=== PATIENT | male | born 1955 | race Caucasian/White ===

== ENCOUNTER 2025-07-21 09:51 | Outpatient (AMB) | payer MEDICARE, SELFPAY ==
--- NOTE | 2025-07-21 10:10 | A.OFFPC_ITS ---
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 ?? Prior PCP:? No Recent PCP Last office visit/CPE:? > 1 yr Acute issue(s):? B/L Hand Swelling and R hand tingling. ?? PMHx:? afib. s/p ablation. Had Cardiology at [facility] [place]. None now. SurgHx:? R knee, Heart Ablation FHx:? Mom: CVA. Dad: EtOH complications. Sister: Afib. SocHx: Quit Cigs 12 yrs ago. EtOH: 2 drinks a day. No drugs PFSH Surgical History (Updated 07/21/25 @ 11:06 by Shaquille Dukes) History of knee replacement History of cardiac radiofrequency ablation H/O knee surgery Family History (Updated 07/21/25 @ 10:21 by Page Cedillo CMA) Mother Stroke Social History (Updated 07/21/25 @ 10:22 by Page Cedillo CMA) Housing: House Alcohol intake: current Patient Tobacco Use Status: Former Tobacco user Cigarette Packs Per Day: 1 Cigarettes Per Day: 15 Years Smoked: 40 e-Cigarette/Vaping Use: Never Used Second Hand Smoke Exposure: No service: Yes ([employer]) Current occupational status: employed Current occupation: [employer] Current occupational exposures/hazards: No Cognitive needs: No Hearing needs: No Vision needs: No Questionnaire PHQ-9 Over the last 2 weeks, how often have you been bothered by any of the following problems? 1. Little interest or pleasure in doing things: not at all 2. Feeling down, depressed, or hopeless: not at all 3. Trouble falling or staying asleep, or sleeping too much: not at all 4. Feeling tired or having little energy: not at all 5. Poor appetite or overeating: not at all 6. Feeling bad about yourself - or that you are a failure or have let yourself or your family down: not at all 7. Trouble concentrating on things, such as reading the newspaper or watching television: not at all 8. Moving or speaking so slowly that other people could have noticed. Or the opposite - being so fidgety or restless that you have been moving around a lot more than usual: not at all 9. Thoughts that you would be better off or of hurting yourself in some way: not at all Total score: 0 Depression Screening Interpretation: Negative Depression Screening Done: Yes 93499 - PHQ-9 Billing: Yes Source: Developed by Drs. Mariano Ross, Awilda Mckee, Ced Martinez and colleagues, with an educational yordan from [employer]. Thrive Questionnaire Date Thrive assessed: 07/21/25 I am a: Patient What is your living situation today?: I have a steady place to live Within the past 12 months, did the food you bought not last and you didn't have the money to get more?: Never true Within the past 12 months, did you worry whether your food would run out before you got money to buy more?: Never true Do you have trouble paying for medicines?: No Do you have trouble getting transportation to medical appointments?: No Do you have trouble paying your heating and electricity bill?: No Do you have trouble taking care of your child, family member or friend?: No Do you have trouble with day-to-day activities such as bathing, preparing meals, shopping, managing finances, etc.?: No Are you currently unemployed and looking for a job?: No Are you interested in more education?: No THRIVE Score: 0 AUDIT C Alcohol Use Questionnaire (AUDIT-C) 1. How often do you have a drink containing alcohol?: 2-3 times a week 2. How many drinks containing alcohol do you have on a typical day when you are drinking?: 3 or 4 3. How often do you have six or more drinks on one occasion?: Monthly Total Score: 6 ELLA-7 AMB Questionnaire ELLA-7 Date ELLA - 7 assessed: 07/21/25 Feeling nervous, anxious, or on edge: 0 = Not at all Not being able to stop or control worryin = Not at all Worrying too much about different things: 0 = Not at all Trouble relaxin = Not at all Being so restless that it is hard to sit still: 0 = Not at all Becoming easily annoyed or irritable: 0 = Not at all Feeling afraid as if something awful might happen: 0 = Not at all Total ELLA-7 score (0-4 normal; 5-9 mild; 10-14 moderate; 15-21 severe): 0 Source: Developed by Drs. Mariano Ross, Awilda Mckee, Ced Martinez and colleagues, with an educational yordan from [employer]. Review of Systems Const Denies chills, Denies fatigue, Denies fever(s), Denies headache(s) and Denies weakness ENT Denies dizziness and Denies headache(s) Card Denies chest pain, Denies lightheadedness, Denies dyspnea and Denies other (Palpitations) Resp Denies cough, Denies dyspnea, Denies wheezing and Denies other ( shortness of breath) Musc Denies numbness and Denies tingling Neuro Denies dizziness, Denies headache(s), Denies numbness, Denies tingling, Denies paresthesias and Denies weakness Psych Denies anxiety and Denies depression Endo Denies fatigue Aller/Immun Denies wheezing Physical exam (Primary Care) Vital Signs: Last Vital Signs Temp 97.3 F 07/21/25 10:22 Pulse 88 07/21/25 10:22 Resp 16 07/21/25 10:22 BP 116/70 07/21/25 10:22 Pulse Ox 97 07/21/25 10:22 Oxygen Delivery Method Room Air 07/21/25 10:22 BMI result Body Mass Index 27.1 Tobacco/Smoking Status: Tobacco use Status Tobacco use date assessed 07/21/25 07/21/25 10:29 Patient Tobacco Use Status Former Tobacco user 07/21/25 10:29 e-Cigarette/Vaping Use Never Used 07/21/25 10:29 PHQ-9: PHQ-9 Score PHQ-9: Total score 0 07/21/25 10:46 Depression Screening Interpretation: Negative Thrive Assessment: Date of Thrive Assessment Date Thrive assessed 07/21/25 07/21/25 10:11 Const General: no acute distress and well developed Nutritional Appearance: well nourished Orientation/consciousness: patient oriented x3 HENMT Head: Yes normocephalic and Yes atraumatic Eyes General: appearance normal, both eyes and all related structures Pupils: Equal, round and reactive pupils present EOM: EOMs intact bilaterally Resp Effort & Inspection: normal respiratory effort Auscultation: clear to auscultation bilaterally Cardio Rate: regular rate Rhythm: regular rhythm Heart sounds: S1 normal heart sound present, S2 normal heart sound present, no gallops, no murmurs and no rubs Neuro General: patient oriented x3 and gait normal Cranial nerves: Yes Equal, round and reactive pupils present Psych Affect: normal affect Coding Level of Care Code New Pt Level 3 (39621) Diagnoses Bilateral hand swelling M79.89 History of atrial fibrillation Z86.79 History of cardiac radiofrequency ablation Z. Laboratory exam ordered as part of routine general medical examination Z00. Additional Codes PHQ-9 - 45635 - PHQ-9 Billing: Yes ([id number]) Assessment & Plan Assessment & Plan (1) Bilateral hand swelling: Code(s): M79.89 - Other specified soft tissue disorders Category: Medical Plan: Bilateral hand swelling Likely arthritis/tendonitis Check x-rays Check inflammatory and autoimmune markers Will send a script for naproxen 500 mg b.i.d. Ice/heat and gentle stretching Will follow-up together at next visit (2) History of atrial fibrillation: Code(s): Z86.79 - Personal history of other diseases of the circulatory system Category: Medical (3) History of cardiac radiofrequency ablation: Comment: 2022 Code(s): Z98.890 - Other specified postprocedural states Category: Surgical (4) Laboratory exam ordered as part of routine general medical examination: Code(s): Z00.00 - Encounter for general adult medical examination without abnormal findings Category: Medical Plan Patient has history of atrial fibrillation with radiofrequency ablation. No longer has irregular rhythm. No longer has vp compliance, per patient. He says cardiology was at [facility] [place] and I will request notes. Orders: Orders Prostate Specific Antigen Scr Today Z12.5 - Encounter for screening for malignant neoplasm of prostate Lipid Panel Today Z00.00 - Encounter for general adult medical examination without abnormal findings TSH reflex Free T4 Today Z00.00 - Encounter for general adult medical examination without abnormal findings UA CC w/rflx Micro + Cult Today Z00.00 - Encounter for general adult medical examination without abnormal findings CRP High Sensitivity Today M79.89 - Other specified soft tissue disorders Cyclic Citrullinated Peptide Today M79.89 - Other specified soft tissue disorders LUIGI Reflex Titer and Pattern Today M79.89 - Other specified soft tissue disorders Comprehensive [place]. Panel Fast Today Z00.00 - Encounter for general adult medical examination without abnormal findings Complete Blood Count Auto Diff Today Z00.00 - Encounter for general adult medical examination without abnormal findings Microalbumin, Random (w Creat) Today I10 - Essential (primary) hypertension Vitamin B12 and Folate Today E53.8 - Deficiency of other specified B group vitamins XR Hand Bilat min 3v Today M79.89 - Other specified soft tissue disorders Erythrocyte Sedimentation Rate Today M79.89 - Other specified soft tissue disorders Rheumatoid Factor Today M79.89 - Other specified soft tissue disorders Medications: New naproxen 500 mg PO BID PRN 60 tabs 2RF pain 30 days diclofenac sodium 1% (Arthritis Pain (diclofenac)) apply to single knee, ankle, foot; for foot includes sole/toes/top of foot 4 grams topical BID 200 grams 2RF 30 days
[2025-07-21 10:22] VITALS: BP 116/70; PULSE 88; RESP 16; TEMP 36.3; O2SAT 97; BMI 27.1
--- OUTSIDE RECORDS SUMMARY | 2025-07-21 11:20 | XMS_ITS ---
Author Name [facility] Organization Unknown Care Team Organization Name Specialty Phone Email Start Date End Da te [facility] NULL Primary Care 08/29/2023 05/05/2024
--- OUTSIDE RECORDS SUMMARY | 2025-07-21 11:20 | XMS_ITS | Clinical Summary ---
Author Organization [facility] Address [address] [place] [address] Care Team Providers Care County Supervisor Name Role Phone Unavailable Primary Care Provider Unavailabl e Social History Tobacco Use Types Packs/Day Years Used Date Smoking Tobacco: Never Assessed Sex and Gender Information Value Date Recorded Sex Assigned at Not on file Gender Identity Not on file Sexual Orientation Not on file Job Start Date Occupation Industry Not on file Not on file Not on file Plan of Treatment Health Maintenance Due Date Last Done Comments Hepatitis C Screening 1955 Depression Screening 1965 Preventative Health Evaluation 1971 DTap / Tdap / Td (1 - Tdap) 1972 Colon Cancer Screening (Colonoscopy) 1998 Shingrix-Zoster Vaccine (1 o f 2) 2003 Fall Risk Assessment 2018 Pneumococcal Vaccine (2 of 2 - PPSV23 or PCV20) 06/05/2020 06/05/2019 COVID-19 Vaccine (4 - 2024-2 6 season) 2025 08/19/2021, 12/30/2020, 12/09/2020 Influenza Vaccine (#1) 2025 RSV Adult > 60+ Yrs or (1 - 1-dose 75+ series) 2028 Hepatitis B Vaccines Aged Out No long er eligible based on patient's age to complete this topic RSV Ped < 20 months Aged Out No longe r eligible based on patient's age to complete this topic Ganesh Holman Personal/Famil y Self 1955 0 (Home) 7 DAILY [facility] [place] [id number]
--- OUTSIDE RECORDS SUMMARY | 2025-07-21 11:21 | XMS_ITS | Data Portability ---
Author Organization [facility], [facility] Address [address] [place] [address] Care Team Providers Care Passenger Service Representative Name Role Phone MIKKI FREEMAN Referring Provider MIKKI FREEMAN Primary Care Provider Assessment Encounter Date Assessment Date Assessment LastModified by Organization Details LastModified Time 10/16/2024 10/16/2024 A: Patient ella. 1# with SAQ today. Patient didn't ella. greater than 25 reps with SLR due to hip pain. P: Increase wt. with knee ext hang N/V. [email or web address] Not available 10/16/2024 11:45:41 10/21/2024 10/21/2024 A: Performed standing resisted counter exercises with good tolerance. P: Progress strength as tolerated to improve functional mobility. Not available 10/21/2024 12:15:08 10/23/2024 10/23/2024 A: Performed sit to stands with emphasis on slow and controlled descend to improve pt's ability to perform functional transfers. P: Progress strength as tolerated to improve functional mobility. Not available 10/23/2024 11:31:52 11/04/2024 11/04/2024 Imaging: Imaging ordered, independently reviewed and interpreted by Jose Luis Dale MD reveals the following findings: XR Knee Right Knee: Three views of the knee were obtained including AP, sunrise, and lateral views. Status post total knee arthroplasty. No evidence of complication, well fixed, well aligned. There is no evidence of loosening or migration. There is no evidence of osteolysis. No fractures are present. Alignment: Neutral Impression: Status post right total knee arthroplasty, 6 weeks out Plan: The patient is doing well, continue activities as tolerated. Follow up with repeat radiographs in one year, or sooner if problems arise. [email or web address] Not available 11/04/2024 08:09:46 Plan of Treatment Reminders Order Date Submit Date Provider Last Modified By Organization Details Last Modified Time Details Appointments None record ed. Lab None record ed. Referral None record ed. Procedures None record ed. Surgeries None record ed. Imaging None record ed. Medication Orders None record ed. Patient TargetsNo targets recorded. Patient InstructionsNo instructions recorded. Reason for Referral None Reported. Results Created Date Observation Date Name Description Value Unit Range Abnormal Flag Note LastModifiedBy Organization Detail LastModifiedTime 10/03/19 25 10/03/2024 XR, knee, 3 view http:/ /[email or web address] ?Encry pted=s hAaTro YD8dLq bEUv6g %2BXZw aYqtaq 0bqfl% 2Fg9IQ a4ajBk vP9nXo QUaueC m3YtLR FvZlgJ JJ8mAn HZtai3 6k1294 AC0Kqb 3uEUau mKiQtr MwF INTERFACE [employer] [address] [facility] [address], [place], [address], 10/03/2024 14:37:06 10/03/19 25 10/03/2024 XR, knee, 3 view http:/ [email or web address] ?Encry pted=s hAaTro YD8dLq bEUv6g %2BXZw aYqtaq 0bqfl% 2Fg9IQ a4ajBk vP9nXo QUaueC m3YtLR FvZlgJ JJ8mAn HZtai3 8o1034 AC0Kqb 3uEUau mKiQtr MwF INTERFACE [employer] [address], [place], [address], 10/03/2024 14:37:08 Result Notes None recorded. Problems Name Problem SNOMED Code Status Onset Date Resolution Date Notes Provider Name and Address Organization Details Recorded Time Pain of right knee joint 0778347330508 00 [facility] 4 09:57:55 Osteoarthr itis of right knee joint 2603907788656 00 Active 2023 Jose Luis Dale MD [address], [place], [address] , [facility] 4 12:20:02 Postoperat sarah pain 468276384 Active 2023 Sylvia Gómez APRN [address], [place], [address] , [facility] 4 10:41:37 History of total knee arthroplas ty 8693195267653 Active 2024 Jose Luis Dale MD [address], [place], [address] , [facility] 5 08:09:45 Problem Notes None recorded. Procedures Surgical History Date Name Laterality Status Provider Name and Address Organization Details Recorded Time 5 17466 Therapeutic Exercise (1:1) cancelled Cruz Lobo, PT [address], [place], [address], [facility] 10/28/2024 12:11:30 5 24738 Therapeutic Exercise (1:1) completed Teri Starr, FOUR SLIDE MACHINE OPERATOR [address], [place], [address], [facility] 10/23/2024 11:30:02 5 52684 Therapeutic Exercise (1:1) completed Teri Starr, FOUR SLIDE MACHINE OPERATOR [address], [place], [address], [facility] 10/21/2024 11:01:20 5 77419 Therapeutic Exercise (1:1) completed Cruz Lobo, PT [address], [place], [address], [facility] 10/16/2024 11:28:30 5 21092 Therapeutic Exercise (1:1) completed Cruz Lobo, PT [address], [place], [address], [facility] 10/14/2024 11:39:37 5 50289: Hot or Cold Pack completed Cruz Lobo, PT [address], [place], [address], [facility] 10/14/2024 10:48:01 5 00578 Therapeutic Exercise (1:1) completed Cruz Lobo, PT [address], [place], [address], [facility] 10/09/2024 09:23:13 5 46587: Hot or Cold Pack completed Cruz Lobo, PT [address], [place], [address], [facility] 10/09/2024 09:23:13 5 56093 Therapeutic Exercise (1:1) completed Teri Starr, FOUR SLIDE MACHINE OPERATOR [address], [place], [address], [facility] 10/08/2024 11:22:48 5 87428: Hot or Cold Pack completed Teri Starr, FOUR SLIDE MACHINE OPERATOR [address], [place], [address], [facility] 10/08/2024 11:22:48 5 60280 Therapeutic Exercise (1:1) completed Conor Villafana, FOUR SLIDE MACHINE OPERATOR [address], [place], [address], [facility] 10/01/2024 12:25:46 5 82599: Hot or Cold Pack completed Conor Villafana, FOUR SLIDE MACHINE OPERATOR [address], [place], [address], [facility] 10/01/2024 12:10:26 5 74570 Therapeutic Exercise (1:1) completed Cruz Lobo, PT [address], [place], [address], [facility] 09/25/2024 12:16:59 5 10155: Low complexity PT Eval completed Cruz Lobo, PT [address], [place], [address], [facility] 09/25/2024 12:17:03 5 G8417 BMI Above Upper Parameters, F/U Documented completed Cruz Saeedan, PT [address], [place], [address], [facility] 09/25/2024 12:18:02 5 G8427 Current Medication Documented completed Cruz Lobo, PT [address], [place], [address], [facility] 09/29/2024 15:25:29 4 87012 Therapeutic Exercise (1:1) completed Cruz Lobo, PT [address], [place], [address], [facility] [employer] [facility] 09/02/2024 11:08:56 4 51223: Low complexity PT Eval completed Cruz Lobo, PT [address], [place], [address], [facility] 09/02/2024 11:09:01 4 G8417 BMI Above Upper Parameters, F/U Documented completed Cruz Lobo, PT [address], [place], [address], [facility] 09/12/2024 08:22:40 4 G8427 Current Medication Documented completed Cruz Lobo, PT [address], [place], [address], [facility] 09/12/2024 08:22:42 Imaging Results None recorded. Procedure Notes None recorded. Medical Equipment None Reported. Allergies No known drug allergies Medications Name Sig Start Date Stop Date Status Note LastModified by Organization Details LastModified Time celecoxib 200 mg capsule TAKE 1 CAPSULE EVERY DAY BY ORAL ROUTE FOR 33 DAYS. active Not Available Not Available No t Available pravastatin 40 mg tablet TAKE 1 TABLET BY MOUTH EVERY DAY active Not Available Not Available No t Available tretinoin 0.05 % topical cream APPLY THIN LAYER TO FACE NIGHTLY active Not Available Not Available No t Available tramadol 50 mg tablet TAKE 1 TO 2 TABLETS BY MOUTH EVERY 6 HOURS NEEDED FOR MILD PAIN. DO NOT EXCEED 8 TABLETS (400MG) PER DAY. active Not Available Not Available No t Available acetaminophen ER 650 mg tablet,extended release TAKE 1 TABLET 3 TIMES A DAY BY ORAL ROUTE FOR 33 DAYS. active Not Available Not Available No t Available benzonatate 100 mg capsule TAKE 1 CAPSULE BY MOUTH THREE TIMES A DAY FOR 5 DAYS active Not Available Not Available No t Available pantoprazole 40 mg tablet,delayed release TAKE 1 TABLET BY MOUTH EVERY DAY FOR 30 DAYS active Not Available Not Available No t Available docusate sodium 100 mg capsule TAKE 1 CAPSULE BY MOUTH TWICE A DAY FOR 30 DAYS active Not Available Not Available No t Available ipratropium bromide 21 mcg (0.03 %) nasal spray SPRAY 2 SPRAYS INTO EACH NOSTRIL 3 TIMES A DAY active Not Available Not Available No t Available loratadine 10 mg tablet TAKE 1 TABLET BY MOUTH EVERY DAY active Not Available Not Available No t Available oxycodone 5 mg tablet TAKE 1 TO 2 TABLETS BY MOUTH EVERY 4 HOURS NEEDED FOR SEVERE PAIN active Not Available Not Available No t Available aspirin active Not Available Not Avail able Not Available pravastatin active Not Available Not A vailable Not Available Vitals None Recorded Social History None recorded. Functional Status None recorded. Mental Status None recorded. Family History Nothing Reported. Medical History Condition Response Arthritis Y Past Encounters Encounter ID Performer Location Encounter Start Date Encounter Closed Date Diagnosis/Indication Diagnosis SNOMED-CT Code Diagnosis ICD10 Code Diagnosis IMO Codes Diagnosis Note [id number] [facility] [address] [place] [address] 07/08/2024 09:12:21 07/24/2024 07:26:55 Pain of right knee joint 4265839187 82139 M25.561 603098 Osteoarthr itis of right knee joint 7848113251 12867 M17.11 2127599 [id number] Jose Luis Brothers, MD [facility] [address] [place] [address] 08/21/2024 09:57:24 09/05/2024 15:42:54 Osteoarthritis of right knee joint 7077462496 99884 M17.11 [id number] Cruz Lobo, PT [facility] [address] [place] [address] 09/09/2024 08:15:08 09/09/2024 09:29:48 Osteoarthritis of knee 973393261 M17.11 [id number] Sylvia Gómez, ORIENTOR [facility] [address] [place] [address] 09/09/2024 10:11:20 10/02/2024 04:00:20 Osteoarthritis of right knee joint 5805259935 09558 M17.11 [id number] Cruz Lobo, PT [facility] [address] [place] [address] 09/29/2024 14:45:35 09/29/2024 15:32:52 History of right total knee replacement 5005596721 864040 Z96.651 Z47.1 [id number] Conor Villafana, FOUR SLIDE MACHINE OPERATOR [facility] [address] [place] [address] 10/01/2024 11:25:55 10/01/2024 12:31:42 History of right total knee replacement 4624491775 496160 Z96.651 Z47.1 [id number] Migel Chua PA-C [facility] [address] [place] [address] 10/03/2024 14:24:34 10/14/2024 08:15:20 Implantation of joint prosthesis 24264638 Z47.1 Knee joint prosthesis present 1761974976 02 Z96.406 [id number] Teri Starr, FOUR SLIDE MACHINE OPERATOR [facility] [address] [place] [address] 10/08/2024 12:50:41 10/08/2024 13:59:46 History of right total knee replacement 5916174019 098477 Z96.651 Z47.1 [id number] Cruz Lobo, PT [facility] [address] [place] [address] 10/10/2024 13:51:21 10/10/2024 15:02:08 History of right total knee replacement 6169559906 940418 Z96.651 Z47.1 [id number] Cruz Lobo, PT [facility] [address] [place] [address] 10/14/2024 10:52:12 10/14/2024 11:45:06 History of right total knee replacement 1077617227 487264 Z96.651 Z47.1 [id number] Cruz Lobo, PT [facility] [address] [place] [address] 10/16/2024 10:55:33 10/16/2024 12:54:41 History of right total knee replacement 2514893102 342360 Z96.651 Z47.1 [id number] Teri Jasak, FOUR SLIDE MACHINE OPERATOR [facility] [address] [place] [address] 10/21/2024 10:29:17 10/21/2024 11:11:45 History of right total knee replacement 7262381549 716234 Z96.651 Z47.1 [id number] Teri Jasak, FOUR SLIDE MACHINE OPERATOR [facility] [address] [place] [address] 10/23/2024 10:18:42 10/23/2024 13:31:32 History of right total knee replacement 7368862158 850228 Z96.651 Z47.1 [id number] Cruz Lobo, PT [facility] [address] [place] [address] 10/28/2024 12:37:43 10/28/2024 12:46:52 History of right total knee replacement 2822570375 235041 Z96.651 Z47.1 [id number] MD [facility] [address] [place] [address] 11/04/2024 07:53:56 11/19/2024 16:13:55 History of total knee arthroplasty 1211648329 105 Z96.651 [id number] Health Concerns Section Related Observation LastModified by Organization Detai ls LastModified Time None Recorded Concern Status LastModified by Organization Details LastModified Time None Recorded Advance Directives Directive None Recorded Payers Insurance Date Sequence Insurance Name Policy Number Policy Be Covered Member ID Be Member ID Guarantor Name 09/08/2024 1 [place] [employer] Ganesh Holman [id number] Ganesh Holman 09/08/2024 2 [place] Ganesh Holman [id number] Ganesh Holman 06/03/2025 1 DEANGELO RIVERA - MEDICARE-[address] [employer] BOARD (MEDICARE) Ganesh Holman [id number] Ganesh Holman Notes Date Note Type Note Provider Name and Address Organization Details Recorded Time 10/16/2024 text/html Pt states that his knee pain's been a 1/10 at the incision site today. Cruz Lobo, PT [address], [place], [address], [facility] 10/16/2024 11:46:22 10/21/2024 text/html Pt states that he is staying very active and going to the gym occasionally. Teri Starr, FOUR SLIDE MACHINE OPERATOR [address], [place], [address], [facility] 10/21/2024 12:15:23 10/23/2024 text/html Pt states no significant changes in sxs since last visit. He rates his pain 1/10 today coming in. Teri Starr, FOUR SLIDE MACHINE OPERATOR [address], [place], [address], [facility] 10/23/2024 11:32:30 10/28/2024 text/html Patient accidentally checked in by front end assistant. Patient no showed today. Cruz Lobo, PT [address], [place], [address], [facility] 10/28/2024 13:10:38 11/04/2024 text/html ROS as noted in the HPI History of present illness:This patient follows up today and is now 6 weeks out from right total knee arthroplasty. Their pain is well controlled and they are progressing as expected with physical therapy. Able to do current activities without significant difficulty. They have no major complaints at this time and are satisfied with their current state of recovery.Past family, medical, social history and review of systems has been reviewed and updated, and is located in the patient s chart. Jose Luis Dale MD [address] [place], [place] [address] [address], [place], [address], [facility] 11/04/2024 08:09:58
== END 2025-07-21 11:11 | disposition home or self-care (01) ==
LOC: HO.HMCFM 09:51
PROVIDERS: PCP Family Medicine; Visit Provider Family Medicine
DX: M79.89 Other specified soft tissue disorders (principal); Z86.79 Personal history of other diseases of the circulatory system; Z98.890 Other specified postprocedural states; Z00.00 Encounter for general adult medical examination without abnormal findings

== ENCOUNTER → 2025-07-21 09:51 | Outpatient (BNVA) | payer MEDICARE, SELFPAY | PROVIDERS: PCP Family Medicine; Visit Provider Family Medicine | DX: M79.89 Other specified soft tissue disorders (principal); Z86.79 Personal history of other diseases of the circulatory system; Z13.31 Encounter for screening for depression | CPT/HCPCS: 96127; 99202 ==

== ENCOUNTER 2025-07-24 09:05 | Outpatient (REF) | payer MEDICARE, SELFPAY ==
--- NOTE | ~2025-07-24 | XR_ITS ---
EXAMINATION: XR HAND BILAT 3V CLINICAL INFORMATION: M79.89 - Other specified soft tissue disorders ; bilateral hand pain. COMPARISON: No prior available. TECHNIQUE: PA, lateral, and oblique views of each hand obtained. FINDINGS: RIGHT HAND: There is no fracture, dislocation, or suspicious bone lesion. Normal bone mineralization. No periarticular osteopenia is identified. Moderate to severe changes of osteoarthritis are present in the interphalangeal joints of the digits, most significant involving the DIP joint of the third digit, and PIP joint of the fourth digit. There is mild ulnar deviation of the PIP joint of the fourth digit. There are associated productive marginal bony changes with spurring. Severe osteoarthritic changes also noted in the first CMC joint, with lesser degree in the STT joints. Mild narrowing of the radiocarpal joint. Mild narrowing of the MCP joints with mild productive bony changes. No gross periarticular erosions are present. No acute soft tissue abnormalities are present. There are vascular calcifications. LEFT HAND: There is no fracture, dislocation, or suspicious bone lesion. Normal bone mineralization. No periarticular osteopenia is identified. Moderate to severe changes of osteoarthritis are present in the interphalangeal joints of the digits, most significant involving the DIP joint of the third digit, and PIP joints of the third and fourth digits. There is mild ulnar deviation of the PIP joint of the fourth digit. There are associated productive marginal bony changes with spurring. Moderate osteoarthritic changes also noted in the first CMC joint, with mild changes in the STT joints. Mild narrowing of the radiocarpal joint. Mild narrowing of the MCP joints with mild productive bony changes. No gross periarticular erosions are present. No acute soft tissue abnormalities are present. There are vascular calcifications. XR/XR Hand Bilat min 3v IMPRESSION: 1. No acute bony or soft tissue abnormalities of either hand. 2. Significant bilateral hand and wrist osteoarthrosis as discussed. 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 Electronically signed by: Perry Roberson MD 07/24/2025 09:58 AM [facility]
[2025-07-24 09:21] LABS: MANUAL DIFF FLAG NO
[2025-07-24 09:37] LABS: Hematocrit 39.3 % (42.0-52.0); Hemoglobin 13.0 g/dl (14.0-18.0); Imm Gran Abs Auto 0.02 X10*3/uL (0.00-0.03); Imm Gran Pct Auto 0.4 % (0.0-0.4); Lymphocytes Absolute Auto 1.5 X10*3/uL (1.2-4.9); Mean Corpuscular HGB Conc 33.1 g/dl (31.0-36.0); Mean Corpuscular Hemoglobin 29.0 pg (27.0-33.0); Mean Corpuscular Volume 87.7 fL (80.0-98.0); NRBC Abs Auto 0.000 X10*3/uL (0.0-0.012); NRBC Pct Auto 0.0 /100WBC (0.0-0.2); Platelet Count 187 X10*3/uL (160-400); Red Blood Count 4.48 X10*6/uL (4.60-5.80); White Blood Count 5.6 X10*3/uL (4.8-10.8)
--- OUTSIDE RECORDS SUMMARY | 2025-07-24 10:09 | XMS_ITS | Clinical Summary ---
Author Organization [employer] Address [address] [facility] [address] [facility] [address] [place] [address] Care Team Providers Care Combination Window Installer Name Role Phone Andrae Machado MD Primary Care Provider [phone] Carson Duran MD Unavailable [phone] Allergies No known active allergies Medications aspirin 81 mg EC tablet Take 81 mg by mouth once daily. 12/07/2022 Active Active Problems Problem Noted Date Diagnosed Date Paroxysmal atrial fibrillation 06/25/2022 Assessment & Plan (01/11/2023 1:42 PM EDT): He initially presented [facility], seeking a second opinion regarding further evaluation and management of atrial fibrillation. At the time of his visit, it was discussed on the good chance to treated with an ablation procedure, with a success rate of around 70%. The patient ultimately had his AFib ablation locally at [facility] last fall without any further occurences of AFib. He currently remains off of antiarrhythmics, and anticoagulation. Today he seeks out our recommendations/ interventions on an elevated calcium score on a CT coronary artery score done on 11/17/22 at [facility]. Mr Julio was advised that the [facility] does not manage high Calcium score on seen on Coronary CT scans. His local interior plant caretaker would be best to manage these findings. He remains without any S+S ischemia. Assessment & Plan (06/25/2022 8:09 PM EDT): Diagnosed with atrial fibrillation few months ago. Underwent multiple cardioversions with the most recent being 4 weeks ago while on Multaq 400 mg twice daily. His home medical regimen also includes diltiazem 120 mg once daily and Xarelto 20 mg once daily for stroke prevention. Continues to endorse palpitations and fatigue. He tends to go back into A. fib after consuming alcohol or working out for 2 hours. He is in sinus rhythm today. Vital signs within acceptable limits. Physical exam was unrevealing. We discussed at length the pathophysiology and natural history of atrial fibrillation. Rhythm control strategies were discussed at length in the office today with patient and his . The risks/benefits of atrial fibrillation ablation were discussed in detail. Potential complications/adverse events include, but are not limited to: bleeding/bruising, infection, vascular complication, stroke, phrenic nerve paralysis, atrioesophageal fistula, cardiac perforation, tamponade, the need for emergent cardiac surgery, and cardiopulmonary arrest. The patient understands the procedure and all questions were answered. He wishes to have some time to think about it prior to pursuing an afib ablation. He was advised to call our office in the interim, with any further questions or concerns. In the meantime, we recommended getting a sleep study to rule out sleep apnea as well as a 24-hour blood pressure monitoring to determine his mean blood pressure reading. We will give him a call in 1 week to follow-up on his decision. Social History Tobacco Use Types Packs/Day Years Used Date Smoking Tobacco: Never Smokeless Tobacco: Never Tobacco Cessation:Counseling Given: Not Answered Alcohol Use Standard Drinks/Week Comments Yes 0 (1 standard drink = 0.6 oz pur e alcohol) 1 glass a night Sex and Gender Information Value Date Recorded Sex Assigned at Not on file Legal Sex Male 1:39 PM EDT Gender Identity Not on file Sexual Orientation Not on file Last Filed Vital Signs Vital Sign Reading Time Taken Comments Blood Pressure 108/68 01/11/2023 11:42 AM EDT Pulse 75 01/11/2023 11:42 AM EDT Temperature - - Respiratory Rate - - Oxygen Saturation 100% 01/11/2023 11:42 AM EDT Inhaled Oxygen Concentration - - Weight 89.8 kg (198 lb) 01/11/2023 11:42 AM EDT Height 182.9 cm (6') 01/11/2023 11:42 AM EDT Body Mass Index 26.85 01/11/2023 11:42 AM EDT Plan of Treatment Health Maintenance Due Date Last Done Comments CT Colonography 1955 Colonoscopy 1955 Colorectal Cancer Screening 1955 FIT-DNA 1955 FIT 1953 FOBT 1953 Lipid Panel 1953 Sigmoidoscopy 1953 Diabetes Screening 1971 Hepatitis C Screening 1971 DTaP/Tdap/Td Vaccines (1 - Tdap) 1972 Zoster Vaccines (1 of 2) 2003 Pneumococcal Vaccine: 50+ Years (2 of 2 - PCV20 or PCV21) 06/05/2020 06/05/2019 Depression Screening 09/17/2024 COVID-19 Vaccine ( season) 2025 10/07/2022, 08/19/2021, 12/30/2020, Additional history exists Influenza Vaccine (#1) 2025 HIB Vaccines Aged Out No longer eligi ble based on patient's age to complete this topic HPV Vaccines Aged Out No longer eligi ble based on patient's age to complete this topic Hepatitis A Vaccines Aged Out No long er eligible based on patient's age to complete this topic Hepatitis B Vaccines Aged Out No long er eligible based on patient's age to complete this topic IPV Vaccines Aged Out No longer eligi ble based on patient's age to complete this topic Meningococcal B Vaccine Aged Out No l onger eligible based on patient's age to complete this topic Meningococcal Vaccine Aged Out No dereje callum eligible based on patient's age to complete this topic Rotavirus Vaccines Aged Out No longer eligible based on patient's age to complete this topic Insurance [facility] H[facility] [employer] Care Teams Combination Window Installer Relationship Specialty Start Date End Date Andrae Machado MD [address] [facility] [address] [place] [address] PCP - General Quarter Folder 05/17/22 Carson Duran MD [address] [place] [address] 05/17/22
--- OUTSIDE RECORDS SUMMARY | 2025-07-24 10:09 | XMS_ITS | Clinical Summary ---
Author Organization [facility] Address [address] [place] [address] Care Team Providers Care [employer] Senior Officer Name Role Phone Unavailable Primary Care Provider [...] y Self 1955 0 (Home) [address] [place] [address]
--- OUTSIDE RECORDS SUMMARY | 2025-07-24 10:10 | XMS_ITS | Data Portability ---
Author Organization [facility], [facility] Address [address] [place] [address] Care Team Providers Care Make Up Worker Name Role Phone MIKKI FREEMAN Referring Provider MIKKI FREEMAN Primary Care Provider [phone] Assessment Encounter Date Assessment Date Assessment LastModified by Organization Details LastModified Time 10/16/2024 10/16/2024 A: Patient ella. 1# with SAQ today. Patient didn't ella. greater than 25 reps with SLR due to hip pain. P: Increase wt. with knee ext hang N/V. [email or web address] Not available 10/16/2024 11:45:41 10/21/2024 10/21/2024 A: [...] one year, or sooner if problems arise. Not available 11/04/2024 08:09:46 Plan of Treatment Reminders Order Date Submit Date Provider Last Modified By Organization Details Last Modified Time Details Appointments ANNUAL TJR FOLLOW UP 2025 02:45P Gudelia Bunch PA-C Not available Not available Not available Lab None recorded . Referral None recorded . Procedures None recorded . Surgeries None recorded . Imaging None recorded . Medication Orders None recorded . Patient TargetsNo targets recorded. Patient InstructionsNo instructions recorded. Reason for Referral None Reported. Results Created Date Observation Date Name Description Value Unit Range Abnormal Flag Note LastModifiedBy Organization Detail LastModifiedTime 10/03/19 25 10/03/2024 XR, knee, 3 view http:/ [email or web address] ?Encry pted=s hAaTro YD8dLq bEUv6g %2BXZw aYqtaq 0bqfl% 2Fg9IQ a4ajBk vP9nXo QUaueC m3YtLR FvZlgJ JJ8mAn HZtai3 3g6019 AC0Kqb 3uEUau mKiQtr MwF INTERFACE [employer] [address] [facility] Got[facility] Make It [employer] [facility] [address], [place], [address], 10/03/2024 14:37:06 10/03/19 25 10/03/2024 XR, knee, 3 view http:/ [email or web address] ?Encry pted=s hAaTro YD8dLq bEUv6g %2BXZw aYqtaq 0bqfl% 2Fg9IQ a4ajBk vP9nXo QUaueC m3YtLR FvZlgJ JJ8mAn HZtai 6l9187 AC0Kqb 3uEUau mKiQtr MwF INTERFACE [employer] [address] [facility] [address], [place], [address], 10/03/2024 14:37:08 Result Notes None recorded. Problems Name Problem SNOMED Code Status Onset Date Resolution Date Notes Provider Name and Address Organization Details Recorded Time Pain of right knee joint 5310949242353 00 Active 2023 Evelyn Ch [facility] 4 09:57:55 Osteoarthr itis of right knee joint 2036692072788 00 Active 2023 Jose Luis Dale MD [address], [place], [address] , [facility] 4 12:20:02 Postoperat sarah pain 449356231 Active 2023 Sylvia Gómez APRN [address], [place], [address] , [facility] 4 10:41:37 History of total knee arthroplas ty 9671652062765 Active 2024 Jose Luis Dale MD [address], [place], [address] , [facility] 5 08:09:45 Problem Notes None recorded. Procedures Surgical History Date Name Laterality Status Provider Name and Address Organization Details Recorded Time 5 68603 Therapeutic Exercise (1:1) cancelled Cruz Lobo PT [address], [place], [address], [facility] 10/28/2024 12:11:30 5 83116 Therapeutic Exercise (1:1) completed Teri Starr PTA [address], [place], [address], [facility] 10/23/2024 11:30:02 5 78928 Therapeutic Exercise (1:1) completed Teri Starr PTA [address], [place], [address], [facility] 10/21/2024 11:01:20 5 40032 Therapeutic Exercise (1:1) completed Cruz Lobo PT [address], [place], [address], [facility] 10/16/2024 11:28:30 5 50732 Therapeutic Exercise (1:1) completed Cruz Lobo, PT [address], [place], [address], [facility] 10/14/2024 11:39:37 5 10316: Hot or Cold Pack completed Cruz Lobo, PT [address], [place], [address], [facility] 10/14/2024 10:48:01 5 10815 Therapeutic Exercise (1:1) completed Cruz Lobo, PT [address], [place], [address], [facility] 10/09/2024 09:23:13 5 43155: Hot or Cold Pack completed Cruz Lobo, PT [address], [place], [address], [facility] 10/09/2024 09:23:13 5 38909 Therapeutic Exercise (1:1) completed Teri Starr, [employer] [address], [place], [address], [facility] 10/08/2024 11:22:48 5 11268: Hot or Cold Pack completed Teri Starr, [employer]CH[employer]IC [address], [place], [address], [facility] 10/08/2024 11:22:48 5 68846 Therapeutic Exercise (1:1) completed Conor Villafana, [employer]CH[employer]IC [address], [place], [address], [facility] 10/01/2024 12:25:46 5 80730: Hot or Cold Pack completed Conor Villafana, [employer]CH[employer]IC [address], [place], [address], [facility] 10/01/2024 12:10:26 5 54028 Therapeutic Exercise (1:1) completed Cruz Rutland, PT [address], [place], [address], [facility] 09/25/2024 12:16:59 5 94316: Low complexity PT Eval completed Cruz Rutland, PT [address], [place], [address], [facility] 09/25/2024 12:17:03 5 G8417 BMI Above Upper Parameters, F/U Documented completed Cruz Yamil, PT [address], [place], [address], [facility] 09/25/2024 12:18:02 5 G8427 Current Medication Documented completed Cruz Rutland, PT [address], [place], [address], [facility] 09/29/2024 15:25:29 4 28479 Therapeutic Exercise (1:1) completed Cruz Rutland, PT [address], [place], [address], [facility] 09/02/2024 11:08:56 4 83474: Low complexity PT Eval completed Cruz Rutland, PT [address], [place], [address], [facility] 09/02/2024 11:09:01 4 G8417 BMI Above Upper Parameters, F/U Documented completed Cruz Rutland, PT [address], [place], [address], [facility] 09/12/2024 08:22:40 4 G8427 Current Medication Documented completed Cruz Yamil, PT [address], [place], [address], [facility] 09/12/2024 08:22:42 Imaging Results [...] ICD10 Code Diagnosis IMO Codes Diagnosis Note [id number] WILFREDO Gross 2[address] floor [address] [place] [address] 07/08/2024 09:12:21 07/24/2024 07:26:55 Pain of right knee joint 5743578077 61954 M25.561 256813 Osteoarthr itis of right knee joint 1036310009 25611 M17.11 9627053 [id number] Jose Luis Dale MD [address] [place] [address] 08/21/2024 09:57:24 09/05/2024 15:42:54 Osteoarthritis of right knee joint 9377498500 50380 M17.11 3086303 [id number] Cruz Lobo, PT [facility] [address] [place] [address] 09/09/2024 08:15:08 09/09/2024 09:29:48 Osteoarthritis of knee 093629847 M17.11 [id number] Sylvia Gómez APRN [address] [place] [address] 09/09/2024 10:11:20 10/02/2024 04:00:20 Osteoarthritis of right knee joint 9984059677 14653 M17.11 8971391 [id number] Cruz Lobo, PT [facility] [address] [place] [address] 09/29/2024 14:45:35 09/29/2024 15:32:52 History of right total knee replacement 2530785812 926982 Z96.651 Z47.1 [id number] Conor Villafana, [employer] [facility] [address] [place] [address] 10/01/2024 11:25:55 10/01/2024 12:31:42 History of right total knee replacement 7325043273 736396 Z96.651 Z47.1 [id number] Migel Chua PA-C [facility] [place] [address] 10/03/2024 14:24:34 10/14/2024 08:15:20 Implantation of joint prosthesis 68475762 Z47.1 Knee joint prosthesis present 7238514294 02 Z96.569 [id number] Teri Starr, [employer] [facility] [address] [place] [address] 10/08/2024 12:50:41 10/08/2024 13:59:46 History of right total knee replacement 1306282339 865521 Z96.651 Z47.1 [id number] Cruz Lobo, PT [facility] [address] [place] [address] 10/10/2024 13:51:21 10/10/2024 15:02:08 History of right total knee replacement 0943929488 591773 Z96.651 Z47.1 [id number] Cruz Lobo, PT [facility] [address] [place] [address] 10/14/2024 10:52:12 10/14/2024 11:45:06 History of right total knee replacement 3712351457 943262 Z96.651 Z47.1 [id number] Cruz Lobo, PT [facility] [address] [place] [address] 10/16/2024 10:55:33 10/16/2024 12:54:41 History of right total knee replacement 9629777922 852211 Z96.651 Z47.1 [id number] Teri Jasak, [employer]CH[employer]IC [facility] [address] [place] [address] 10/21/2024 10:29:17 10/21/2024 11:11:45 History of right total knee replacement 5669804032 205387 Z96.651 Z47.1 [id number] Teri Jasak, [employer]CH[employer]IC [facility] [address] [place] [address] 10/23/2024 10:18:42 10/23/2024 13:31:32 History of right total knee replacement 2013212955 095974 Z96.651 Z47.1 [id number] Cruz Lobo, PT [facility] [address] [place] [address] 10/28/2024 12:37:43 10/28/2024 12:46:52 History of right total knee replacement 4515146929 382243 Z96.651 Z47.1 [id number] MD [facility] [place] [address] [place] [address] 11/04/2024 07:53:56 11/19/2024 16:13:55 History of total knee arthroplasty 3758941343 105 Z96.651 [id number] Health Concerns Section Related Observation LastModified by Organization Detai ls LastModified Time None Recorded Concern Status LastModified by Organization Details LastModified Time None Recorded Advance Directives Directive None Recorded Payers Insurance Date Sequence Insurance Name Policy Number Policy Be Covered Member ID Be Member ID Guarantor Name 09/08/2024 1 [place] [employer] Ganehs Holman [id number] Ganesh Holman 09/08/2024 2 [place] Ganesh Holman [id number] Ganesh Holman 06/03/2025 1 [facility] [facility] (MEDICARE) Ganesh Holman [id number] Ganesh Holman Notes Date Note Type Note Provider Name and Address Organization Details Recorded Time 10/16/2024 text/html Pt states that his knee pain's been a 1/10 at the incision site today. Cruz Lobo, PT [address] [facility] [place], [place], [address], [facility] 10/16/2024 11:46:22 10/21/2024 text/html Pt states that he is staying very active and going to the gym occasionally. Teri Starr, [employer]CH[employer]IC [address] [facility] [place], [place], [address], [facility] 10/21/2024 12:15:23 10/23/2024 text/html Pt states no significant changes in sxs since last visit. He rates his pain 1/10 today coming in. Teri Starr, [employer]CH[employer]IC [address], [place], [address], [facility] 10/23/2024 11:32:30 10/28/2024 text/html Patient accidentally checked in by front services agent. Patient no showed today. Cruz Lobo, PT [address], [place], [address], [facility] 10/28/2024 13:10:38 11/04/2024 text/html ROS as noted [...] patient s chart. Jose Luis Dale MD [address], [place], [address], [facility] 11/04/2024 08:09:58
[2025-07-24 10:16] LABS: Appearance Urine Clear; Glucose Urine UA Negative (Negative); PH 7.0 (5.0-9.0); Specific Gravity - Urine 1.015 (1.005-1.025); UMIC TRIGGER UACC YES
[2025-07-24 10:20] LABS: Alanine Aminotransferase 19 U/L (0-40); Albumin Level 4.2 g/dL (3.5-5.0); Alkaline Phosphatase 85 U/L (39-117); Anion Gap 12 (12-20); Aspartate Amino Transferase 21 U/L (5-37); Blood Urea Nitrogen 19 mg/dL (9-16); Calcium 9.0 mg/dL (8.4-10.2); Carbon Dioxide 24 mmol/L (22-29); Chloride 109 mmol/L (96-108); Cholesterol 174 mg/dL (<200); Estimated Glomerular Filt Rate > 60; HDL Cholesterol 70 mg/dL (>40); Potassium 4.3 mmol/L (3.3-5.1); Sodium 141 mmol/L (135-145); Total Protein 7.0 g/dL (6.5-8.0); Triglycerides 39 mg/dL (<150)
[2025-07-24 10:26] LABS: UACC Culture Trigger YES
[2025-07-24 10:38] LABS: Folate 7.3 ng/mL (> or = 4.0); Vitamin B12 388 pg/mL (200-900)
[2025-07-30 08:33] LABS: Anti Nuclear Antibody Pattern Nuclear, Homogeneous; Anti Nuclear Antibody Screen POSITIVE (NEGATIVE); Anti Nuclear Antibody Titer 1:40 titer
== END 2025-07-24 09:06 | disposition home or self-care (01) ==
LOC: HO.XRAY 09:05
PROVIDERS: PCP Family Medicine; Visit Provider Family Medicine
DX: Z00.00 Encounter for general adult medical examination without abnormal findings (principal); M79.89 Other specified soft tissue disorders; I10 Essential (primary) hypertension; E53.8 Deficiency of other specified B group vitamins; Z12.5 Encounter for screening for malignant neoplasm of prostate
CPT/HCPCS: 36415; 73130; 80053; 80061; 81001; 81003; 82043; 82570; 82607; 82746; 84153; 84443; 85025; 85652; 86038; 86039; 86141; 86200; 86431; 87086

== ENCOUNTER → 2025-07-24 09:25 | Outpatient (BNV) | payer MEDICARE, SELFPAY | PROVIDERS: PCP Family Medicine; Visit Provider Radiology Diagnostic Radiology | DX: M19.041 Primary osteoarthritis, right hand (principal); M19.042 Primary osteoarthritis, left hand; M19.031 Primary osteoarthritis, right wrist; M19.032 Primary osteoarthritis, left wrist | CPT/HCPCS: 73130 ==

== ENCOUNTER 2025-07-30 08:10 | Outpatient (REF) | payer MEDICARE, SELFPAY ==
[2025-07-30 08:55] LABS: Appearance Urine Clear; Glucose Urine UA Negative (Negative); PH 7.0 (5.0-9.0); Specific Gravity - Urine 1.010 (1.005-1.025)
== END 2025-07-30 08:11 | disposition home or self-care (01) ==
LOC: HO.LAB 08:10
PROVIDERS: PCP Family Medicine; Visit Provider Family Medicine
DX: Z00.00 Encounter for general adult medical examination without abnormal findings (principal); R97.20 Elevated prostate specific antigen [PSA]; Z12.5 Encounter for screening for malignant neoplasm of prostate
CPT/HCPCS: 36415; 81003; 84153

== ENCOUNTER 2025-08-10 08:39 | Outpatient (AMB) | payer MEDICARE, SELFPAY ==
[2025-08-10 08:42] VITALS: BP 134/68; PULSE 77; TEMP 36.1; O2SAT 97; BMI 27.9
--- NOTE | 2025-08-10 08:42 | A.OFFPC_ITS ---
Vital Signs 08/10/25 08:42 Height 6 ft Weight 205 lb 8 oz BMI 27.9 BP 134/68 Blood Pressure Location Rt brachial Position Sitting Pulse 77 Pulse Source Pulse Oximeter Temp 97.0 F Temp Source Temporal Artery Scan Pulse Oximetry (%) 97 Oxygen Delivery Method Room Air Intake Visit Reasons: lab review/X-ray results Allergies No Known Allergies Allergy (Verified 08/10/25 08:44) Medication List - Last Reconciled 08/10/25 by Martin Mora MD diclofenac sodium 1% (Arthritis Pain (diclofenac)) 4 grams topical BID 30 days naproxen 500 mg PO BID PRN 30 days Tobacco use date assessed: 08/10/25 Fall risk assessment: No Falls in past year Last assessed Fall Risk: 08/10/25 Dental Screening Dental Screen Date: 08/10/25 Did you have a dental visit in the last 12 months?: Yes Did you have a dental problem in the last 6 months where you did not have access to dental care?: No Was dental information given to patient?: No HPI lab review/X-ray results HPI Details Patient presents to follow-up bilateral hand swelling. Ongoing symptoms. Naproxen did help. He notes that when he uses a massager on his left wrist that the tingling and numbness sensation in left hand is exacerbated. Left hand is worse than right and he is left-handed X-rays showed changes c/w osteoarthritis BS is elevated. He has appt w/ Urology for elevated PSA [facility] Surgical History History of knee replacement History of cardiac radiofrequency ablation H/O knee surgery Family History Mother Stroke Social History Housing: House Alcohol intake: current Patient Tobacco Use Status: Former Tobacco user Cigarette Packs Per Day: 1 Cigarettes Per Day: 15 Years Smoked: 40 e-Cigarette/Vaping Use: Never Used Second Hand Smoke Exposure: No service: Yes ([employer]) Current occupational status: employed Current occupation: [employer] Current occupational exposures/hazards: No Cognitive needs: No Hearing needs: No Vision needs: No Questionnaire PHQ-9 Over the last 2 weeks, how often have you been bothered by any of the following problems? 1. Little interest or pleasure in doing things: nearly every day 2. Feeling down, depressed, or hopeless: not at all 3. Trouble falling or staying asleep, or sleeping too much: not at all 4. Feeling tired or having little energy: not at all 5. Poor appetite or overeating: not at all 6. Feeling bad about yourself - or that you are a failure or have let yourself or your family down: not at all 7. Trouble concentrating on things, such as reading the newspaper or watching television: not at all 8. Moving or speaking so slowly that other people could have noticed. Or the opposite - being so fidgety or restless that you have been moving around a lot more than usual: not at all 9. Thoughts that you would be better off or of hurting yourself in some way: not at all Total score: 3 Source: Developed by Drs. Mariano Ross, Awilda Mckee, Ced Martinez and colleagues, with an educational yordan from [employer]. Thrive Questionnaire Date Thrive assessed: 07/14/25 What is your living situation today?: I have a steady place to live Within the past 12 months, did the food you bought not last and you didn't have the money to get more?: Never true Within the past 12 months, did you worry whether your food would run out before you got money to buy more?: Never true Do you have trouble paying for medicines?: No Do you have trouble getting transportation to medical appointments?: No Do you have trouble paying your heating and electricity bill?: No Do you have trouble taking care of your child, family member or friend?: No Do you have trouble with day-to-day activities such as bathing, preparing meals, shopping, managing finances, etc.?: No Are you currently unemployed and looking for a job?: No Are you interested in more education?: No Please select the resources that you would like help with: None Currently or been in a relationship where the following occur: No concerns reported THRIVE Score: 0 AUDIT C Alcohol Use Questionnaire (AUDIT-C) 1. How often do you have a drink containing alcohol?: 2-3 times a week 2. How many drinks containing alcohol do you have on a typical day when you are drinking?: 3 or 4 3. How often do you have six or more drinks on one occasion?: Monthly Total Score: 6 ELLA-7 AMB Questionnaire ELLA-7 Date ELLA - 7 assessed: 07/21/25 Feeling nervous, anxious, or on edge: 0 = Not at all Not being able to stop or control worryin = Not at all Worrying too much about different things: 0 = Not at all Trouble relaxin = Not at all Being so restless that it is hard to sit still: 0 = Not at all Becoming easily annoyed or irritable: 0 = Not at all Feeling afraid as if something awful might happen: 0 = Not at all Total ELLA-7 score (0-4 normal; 5-9 mild; 10-14 moderate; 15-21 severe): 0 Source: Developed by Drs. Mariano Ross, Awilda Mckee, Ced Martinez and colleagues, with an educational yordan from [employer]. Review of Systems Const Denies chills, Denies fatigue, Denies fever(s), Denies headache(s) and Denies weakness ENT Denies dizziness and Denies headache(s) Card Denies chest pain, Denies lightheadedness, Denies dyspnea and Denies other (Palpitations) Resp Denies cough, Denies dyspnea, Denies wheezing and Denies other ( shortness of breath) Musc Details: See HPI Reports numbness and Reports tingling Neuro Denies dizziness, Denies headache(s), Reports numbness, Reports tingling, Denies paresthesias and Denies weakness Psych Denies anxiety and Denies depression Endo Denies fatigue Aller/Immun Denies wheezing Physical exam (Primary Care) Vital Signs: Last Vital Signs Temp 97.0 F 08/10/25 08:42 Pulse 77 08/10/25 08:42 BP 134/68 08/10/25 08:42 Pulse Ox 97 08/10/25 08:42 Oxygen Delivery Method Room Air 08/10/25 08:42 BMI result Body Mass Index 27.9 Tobacco/Smoking Status: Tobacco use Status Tobacco use date assessed 08/10/25 08/10/25 08:46 Patient Tobacco Use Status Former Tobacco user 08/10/25 08:46 e-Cigarette/Vaping Use Never Used 08/10/25 08:46 PHQ-9: PHQ-9 Score PHQ-9: Total score 3 08/10/25 08:46 Thrive Assessment: Date of Thrive Assessment Date Thrive assessed 07/14/25 08/10/25 08:46 Currently or been in a relationship where the following occur: No concerns reported Const General: no acute distress and well developed Nutritional Appearance: well nourished Orientation/consciousness: patient oriented x3 HENMT Head: Yes normocephalic and Yes atraumatic Eyes General: appearance normal, both eyes and all related structures Pupils: Equal, round and reactive pupils present EOM: EOMs intact bilaterally Resp Effort & Inspection: normal respiratory effort Auscultation: clear to auscultation bilaterally Cardio Rate: regular rate Rhythm: regular rhythm Heart sounds: S1 normal heart sound present, S2 normal heart sound present, no gallops, no murmurs and no rubs Neuro General: patient oriented x3 and gait normal Cranial nerves: Yes Equal, round and reactive pupils present Extrem Other: Positive Tinel sign L wrist Psych Affect: normal affect Coding Level of Care Code Est Pt Level 4 (95610) Diagnoses Bilateral hand swelling M79.89 Numbness and tingling in left hand R20.0; R20.2 Elevated PSA R97.20 Elevated fasting blood sugar R73.01 Assessment & Plan Assessment & Plan (1) Bilateral hand swelling: Code(s): M79.89 - Other specified soft tissue disorders Category: Medical (2) Numbness and tingling in left hand: Code(s): R20.0 - Anesthesia of skin; R20.2 - Paresthesia of skin Category: Medical (3) Elevated PSA: Code(s): R97.20 - Elevated prostate specific antigen [PSA] Category: Medical Plan: PSA elevated x2 and he is referred to Urology. He has an appointment in October Follow-up with urology as recommended (4) Elevated fasting blood sugar: Code(s): R73.01 - Impaired fasting glucose Category: Medical Plan: Elevated fasting blood sugar. Patient denies history of diabetes or pre diabetes and no family history. Encouraged a diet lower in sugars and starches Will repeat fasting blood sugar along A1c with next blood draw prior to next visit. Plan Patient has numbness and tingling in his left hand as well as bilateral hand swelling. X-rays show likely osteoarthritis Patient notes that he gets worsened symptoms of numbness and tingling when he uses a massager at his left wrist. + Tinel's sign. Referred to hand specialist Continue naproxen Inflammatory markers equivocal and autoimmune markers negative Orders: Orders Comprehensive Hallie. Panel Fast Today Z00.00 - Encounter for general adult medical examination without abnormal findings Lipid Panel Today Z00.00 - Encounter for general adult medical examination without abnormal findings Hemoglobin A1c Today R73.01 - Impaired fasting glucose Referrals Hand Surgery Referral R20.0 - Anesthesia of skin, R20.2 - Paresthesia of skin
--- OUTSIDE RECORDS SUMMARY | 2025-08-10 09:00 | XMS_ITS | Clinical Summary ---
Author Organization [employer] [facility] Address [address] [place] [address] Care Team Providers Care Sports Administrator Name Role Phone Unavailable Primary Care Provider [...] y Self 1955 0 (Home) 7 [facility] [place] [address]
--- OUTSIDE RECORDS SUMMARY | 2025-08-10 09:00 | XMS_ITS | Clinical Summary ---
Author Organization [facility] Address [address] [facility] Babs Batista [facility] [address] [place] [address] Care Team Providers Care Diagnostic Medical Sonographer Name Role Phone Andrae Machado MD Primary Care Provider Carson Duran MD Unavailable [phone] Allergies No known active allergies Medications aspirin [...] ultimately had his AFib ablation locally at [facility] last fall without any further occurences of AFib. He currently remains off of antiarrhythmics, and anticoagulation. Today he seeks out our recommendations/ interventions on an elevated calcium score on a CT coronary artery score done on 11/17/22 at [facility]. Mr Julio was advised that the [facility] does not manage high Calcium score on seen on Coronary CT scans. 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 [...] patient's age to complete this topic Insurance [facility] [employer] Care Teams Diagnostic Medical Sonographer Relationship Specialty Start Date End Date Andrae Machado MD [address] [facility] [address] [place] [address] PCP - General Beating Machine Operator 05/17/22 Carson Duran MD [address] [place] [address] 05/17/22
--- OUTSIDE RECORDS SUMMARY | 2025-08-10 09:00 | XMS_ITS | Clinical Summary ---
Author Organization [facility] it Address [address] [place] [address] Care Team Providers Care Stamp Press Operator Name Role Phone Andrae Machado MD Primary Care Provider [phone] Encounters Date Type Department Care Team Description 07/27/2025 Telephone [facility] Cardiology [facility] [address] [place] [address] Moris Mitchell MD from Last 3 Months Surgical History Surgery Date Site/Laterality Comments KNEE SURGERY 1979 Right PROCEDURE: HISTORICAL KNEE SURGERY; COMMENT: ?meniscus surgery EYE SURGERY PROCEDURE: MO TRABECULOPLASTY BY LASER SURGERY; COMMENT: LASIK - laser assisted in situ keratomilesis OTHER SURGICAL HISTORY PROCEDURE: MO RPR 1 TORN LIGM&/CAPSL KNE COLTRL&CRUCIATE; COMMENT: Repair of anterior cruciate ligament of knee joint COLONOSCOPY 06/16/2021 PROCEDURE: HISTORICAL COLONOSCOPY Medical History Medical History Date Comments H/O tear of anterior cruciate ligament DX:H/O tear of anterior cruciate ligament Right ear impacted cerumen DX:Ri ght ear impacted cerumen Fatigue DX:Fatigue Family History Medical History Relation Name Comments Leukemia Brother gilbert syndrom e No Known Problems Daughter Other: ?minor heart issue age 80 Father DM Other: Liver Failure Father Ascites Stroke Mother age 60, ag e 82, thyroid No Known Problems Sister No Known Problems Son Relation Name Status Comments Brother Daughter Alive Father Mother Sister Alive Son Alive Social History Tobacco Use Types Packs/Day Years Used Date Smoking Tobacco: Former Cigarettes 0.8 Q uit: 01/15/2013 Smokeless Tobacco: Never Alcohol Use Standard Drinks/Week Comments Yes 0 (1 standard drink = 0.6 oz pur e alcohol) Sex and Gender Information Value Date Recorded Sex Assigned at Not on file Legal Sex Male 2:49 PM EST Gender Identity Not on file Sexual Orientation Not on file Obstetrics History Last Filed Vital Signs Vital Sign Reading Time Taken Comments Blood Pressure 110/74 05/01/2023 10:22 AM EDT Si tting L Arm Pulse 84 05/01/2023 10:22 AM EDT Temperature - - Respiratory Rate - - Oxygen Saturation - - Inhaled Oxygen Concentration - - Weight 90.7 kg (200 lb) 05/01/2023 10:22 AM EDT Height 182.9 cm (6') 05/01/2023 10:22 AM EDT Body Mass Index 27.12 05/01/2023 10:22 AM EDT Plan of Treatment Health Maintenance Due Date Last Done Comments Colorectal Cancer Screening: Colonoscopy 1955 DTaP,Tdap,and Td Vaccines (1 - Tdap) 1972 Zoster Vaccines (1 of 2) 2003 Pneumococcal Vaccine: 50+ Years (2 of 2 - PCV20 or PCV21) 06/05/2020 06/05/2019 Cholesterol Screening (Lipid Panel) 08/21/2022 Falls Risk Assessment 08/21/2022 Hepatitis C Screening 08/21/2022 Medicare Annual Wellness Visit 08/21/2022 Social Influencers of Health Screening 08/21/2022 Depression Screening 09/17/2024 COVID-19 Vaccine (1 - 2024-2 6 season) 2025 Influenza Vaccine (#1) 2025 RSV Immunization Adult Patients (1 - 1-dose 75+ series) 2028 Abdominal Aortic Aneurysm (AAA) Screen Completed 06/10/2019 Lung Cancer Screening (Low Dose CT) Discontinued 01/02/2023, 12/09/2021, 12/03/2020 HIB Vaccines Aged Out No longer eligi [...] on patient's age to complete this topic MMR Vaccines Aged Out No longer eligi ble based on patient's age to complete this topic Meningococcal ACWY Vaccine Aged Out N o longer eligible based on patient's age to complete this topic Meningococcal B Vaccine Aged Out No l onger eligible based on patient's age to complete this topic RSV Immunization Patients Under 20 months Aged Out No longer eligible based on patient's age to complete this topic Varicella Vaccines Aged Out No longer eligible based on patient's age to complete this topic Procedures Procedure Name Priority Date/Time Associated Diagnosis Comments CT LUNG SCREENING LOW DOSE Routine 01/02/2023 12:37 AM EDT Personal history of nicotine dependence US ABDOMINAL AORTA REAL TIME SCREEN STUDY AAA Routine 06/10/2019 10:55 AM EDT Encounter for screening for cardiovascular disorders from Last 3 Months or Most Recently Relevant to Health Maintenance Results * CT LUNG SCREENING LOW DOSE (01/02/2023 12:37 AM EDT) Anatomical Region Laterality Modality Computed Tomogra phy 12/22/2022 7:38 AM EDT Narrative 01/02/2023 12:37 AM EDT [facility] Diagnostic Imaging Department [address] [place] [address] Patient: MANDAGANESH D.O.B./Age/Sex: 1955 - 67 - M Unit#: [id number] Location/Status: [facility]/REG CLI Mnemonic/Ordering Site: [facility] Ordering Physician: RAE MELGAR MD CT Lung Screening Low Dose - 12/22/22744 PROCEDURE: Chest CT INDICATION: Low dose lung cancer screening TECHNIQUE: Chest CT without contrast. Multi planar reformats were created and interpreted. The examination was performed utilizing dose reduction techniques. Total DLP 173.7 COMPARISON: 12/09/2021. FINDINGS: LUNGS/PLEURA: Central airways are patent. Bibasilar atelectasis/scarring. Stable semisolid nodule in the left upper lobe measuring 10 mm, with stable surrounding satellite nodularity. 6 mm nodule in the left upper lobe is stable compared to prior. Multiple fissural lymph nodes along the left fissure are similar compared to prior. Several calcified granulomas in the right upper lobe 3 mm noncalcified solid nodules in the right upper lobe are also stable. No new nodules. Exam. Accessory fissure in the right superior lower lobe is similar compared to prior. No pleural effusion or pneumothorax. MEDIASTINUM: Thyroid gland is normal. No mediastinal or hilar lymphadenopathy. Cardiac chambers are normal in size. Moderate coronary artery calcifications. No pericardial effusion. Small hiatal hernia. Thoracic aorta is normal in size. CHEST WALL: No axillary lymphadenopathy or superficial hematoma. UPPER ABDOMEN:The visualized portions of the upper abdomen are unremarkable. BONES: No acute fracture. Scattered degenerative changes seen throughout the bones. IMPRESSION: Stable solid and semisolid nodules compared to 12/09/2021. No new or suspicious pulmonary nodules. Lung RADS 2-benign. Recommend continued screening with low-dose chest CT in 12 months. Dictating Physician: LUANN GRAHAM MD Electronically Signed by: LUANN GRAHAM MD Dic Date/Time: 01/02/2321 Sign date/Time: 01/02/2336 Procedure Note Luann Graham MD - 10/19/2023 [facility] Diagnostic Imaging Department [address] [place] [id number] Patient: GANESH DOAN./Age/Sex: 1955 - 67 - M Unit#: [id number] Location/Status: [facility]/REG CLI Mnemonic[facility] Ordering Physician: RAE MELGAR MD CT Lung Screening Low Dose - 12/22/22744 PROCEDURE: Chest CT INDICATION: Low dose lung cancer screening TECHNIQUE: Chest CT without contrast. Multi planar reformats were createdand interpreted. The examination was performed utilizing dose reductiontechniques. Total DLP 173.7 COMPARISON: 12/09/2021. FINDINGS: LUNGS/PLEURA: Central airways are patent. Bibasilaratelectasis/scarring. Stable semisolid nodule in the left upper lobe measuring 10 mm, withstable surrounding satellite nodularity. 6 mm nodule in the left upper lobe isstable compared to prior. Multiple fissural lymph nodes along the left fissureare similar compared to prior. Several calcified granulomas in the rightupper lobe 3 mm noncalcified solid nodules in the right upper lobe are also stable.No new nodules. Exam. Accessory fissure in the right superior lower lobe issimilar compared to prior. No pleural effusion or pneumothorax. MEDIASTINUM: Thyroid gland is normal. No mediastinal or hilarlymphadenopathy. Cardiac chambers are normal in size. Moderate coronary arterycalcifications. No pericardial effusion. Small hiatal hernia. Thoracic aorta is normalin size. CHEST WALL: No axillary lymphadenopathy or superficial hematoma. UPPER ABDOMEN:The visualized portions of the upper abdomen areunremarkable. BONES: No acute fracture. Scattered degenerative changes seen throughoutthe bones. IMPRESSION: Stable solid and semisolid nodules compared to 12/09/2021. No new or suspicious pulmonary nodules. Lung RADS 2-benign. Recommend continued screening with low-dose chest CT in 12 months. Dictating Physician: LUANN GRAHAM MD Electronically Signed by: LUANN GRAHAM MD Dic Date/Time: 01/02/2321 Sign date/Time: 01/02/2336 us Rae Melgar MD IMG CT PROCEDURES Final Result * US ABDOMINAL AORTA REAL TIME SCREEN STUDY AAA (06/10/2019 10:55 AM EDT) Anatomical Region Laterality Modality Ultrasound 06/05/2019 9:26 AM EDT Narrative 06/10/2019 4:11 PM EDT US ABDOMINAL AORTA REAL TIME SCREEN STUDY AAA ABDOMINAL AORTA SCREENING ULTRASOUND History: Screening for abdominal aortic aneurysm. Comparison: None. FINDINGS: The study is slightly limited by overlying bowel gas. The proximal aorta measures 2.9 cm in diameter. The mid aorta measures 2.4 cm in diameter. The distal aorta measures 1.8 cm in diameter. No periaortic fluid collection is seen. The aortic bifurcation is normal in appearance. The proximal bilateral common iliac arteries are normal in caliber. IMPRESSION: IMPRESSION: No visualized abdominal aortic aneurysm. Procedure Note Antionette Kendrick - 09/05/2022 US ABDOMINAL AORTA REAL TIME SCREEN STUDY AAA ABDOMINAL AORTA SCREENING ULTRASOUND History: Screening for abdominal aortic aneurysm. Comparison: None. FINDINGS: The study is slightly limited by overlying bowel gas. Theproximal aorta measures 2.9 cm in diameter. The mid aorta measures 2.4 cm in diameter. The distalaorta measures 1.8 cm in diameter. No periaortic fluid collection is seen. The aorticbifurcation is normal in appearance. The proximal bilateral common iliac arteries are normal incaliber. IMPRESSION: IMPRESSION: No visualized abdominal aortic aneurysm. Abdirizak Castro MD IMG US PROCEDURES Final Resu lt from Last 3 Months or Most Recently Relevant to Health Maintenance Care Teams Stamp Press Operator Relationship Specialty Start Date End Date Andrae Machado MD PCP - General Internal Medicine 08/02/21
== END 2025-08-10 09:16 | disposition home or self-care (01) ==
LOC: HO.HMCFM 08:39
PROVIDERS: PCP Family Medicine; Visit Provider Family Medicine
DX: M79.89 Other specified soft tissue disorders (principal); R20.0 Anesthesia of skin; R20.2 Paresthesia of skin; R97.20 Elevated prostate specific antigen [PSA]; R73.01 Impaired fasting glucose

== ENCOUNTER → 2025-08-10 08:39 | Outpatient (BNVA) | payer MEDICARE, SELFPAY | PROVIDERS: PCP Family Medicine; Visit Provider Family Medicine | DX: M79.89 Other specified soft tissue disorders (principal); R20.0 Anesthesia of skin; R20.2 Paresthesia of skin; R73.01 Impaired fasting glucose; R97.20 Elevated prostate specific antigen [PSA] | CPT/HCPCS: 99212 ==